=== PATIENT | male | born 1965 | race Asian ===

== ENCOUNTER 2021-03-09 09:06 | Emergency (ER) | payer MEDICAID, OTHER ==
[~2021-03-09] VITALS: Ht 170.2 cm; Wt 74.8 kg
[2021-03-09 09:33] LABS: Basophils # (auto) 0.1 10 ^3/uL (0-0.2); Basophils % (auto) 1.3 % (0.0-2.0); Eosinophils # (auto) 0.1 10 ^3/uL (0-0.8); Eosinophils % (auto) 2.1 % (0.0-7.0); Hematocrit 43.8 % (41.0-53.0); Hemoglobin 15.1 g/dL (13.5-17.5); Lymphocytes # (auto) 1.8 10 ^3/uL (0.4-5.4); Lymphocytes % (auto) 34.3 % (10.0-50.0); Mean Corpuscular Hemoglobin 31.1 pg (28.0-32.0); Mean Corpuscular Hgb Conc. 34.4 g/dL (32.0-36.0); Mean Corpuscular Volume 90.5 fL (80.0-100.0); Monocytes # (auto) 0.5 10 ^3/uL (0-1.3); Monocytes % (auto) 10.1 % (0.0-12.0); Neutrophils # (auto) 2.7 10 ^3/uL (1.6-8.6); Neutrophils % (auto) 52.2 % (37.0-80.0); Nucleated Red Blood Cells % 0.1 %; Red Blood Cells 4.84 10^6/uL (4.5-5.90); Red Cell Distribution Width 12.8 % (11.8-14.3); White Blood Cell 5.2 10^3/uL (4.4-10.8)
[2021-03-09 09:50] LABS: Albumin 3.4 g/dL (3.4-5.0); Calcium 8.6 mg/dL (8.5-10.1); Potassium 4.5 mmol/L (3.5-5.1)
[2021-03-09 09:50] LABS: Urine Bacteria NONE SEEN /hpf (None Seen); Urine Blood Negative /uL (Negative); Urine Specific Gravity 1.017 (1.001-1.035); Urine WBC 1 /hpf (0 - 3)
[2021-03-09 09:53] LABS: BUN/Creatinine Ratio 13.8
[2021-03-09 09:56] LABS: Bilirubin, Total 0.7 mg/dL (0.2-1.0); Total Protein 7.7 g/dL (6.4-8.2)
[2021-03-09] MEDS ORDERED: SODIUM CHLORIDE 0.9% 1,000 ML IV ONE (11:30)
[2021-03-09] MEDS ORDERED: METOCLOPRAMIDE HCL 5MG/ml INJ 2ml VIAL IV ONE (11:30)
[2021-03-09] MEDS ORDERED: KETOROLAC TROMETH 30 MG/ML 1ML VIAL IV ONE (11:30)
[2021-03-09 13:54] VITALS: BP 162/101
[2021-03-09] MEDS ORDERED: TAMSULOSIN HYDROCHLORIDE 0.4 MG CAP PO ONE (14:30)
== END 2021-03-09 14:38 | disposition home or self-care (01) ==
LOC: ER 09:06
DX: N20.1 Calculus of ureter (principal); K40.20 Bilateral inguinal hernia, without obstruction or gangrene, not specified as recurrent; K76.0 Fatty (change of) liver, not elsewhere classified; I10 Essential (primary) hypertension; Z87.442 Personal history of urinary calculi
CPT/HCPCS: 36415; 74176; 80053; 81001; 85025; 93005; 96361; 96374; 96375; 99285; J1885; J2765; J7030

== ENCOUNTER 2023-12-18 08:29 | Inpatient (IN) | payer MEDICAID ==
[~2023-12-18] VITALS: Ht 172.7 cm; Wt 95.6 kg
[2023-12-18 09:07] LABS: Basophils # (auto) 0 10 ^3/uL (0-0.2); Basophils % (auto) 0.4 % (0.0-2.0); Eosinophils # (auto) 0.2 10 ^3/uL (0-0.8); Eosinophils % (auto) 2.7 % (0.0-7.0); Hematocrit 44.5 % (41.0-53.0); Hemoglobin 15.7 g/dL (13.5-17.5); Lymphocytes # (auto) 1.4 10 ^3/uL (0.4-5.4); Lymphocytes % (auto) 17.8 % (10.0-50.0); Mean Corpuscular Hemoglobin 32.5 pg (28.0-32.0); Mean Corpuscular Hgb Conc. 35.4 g/dL (32.0-36.0); Monocytes # (auto) 0.4 10 ^3/uL (0-1.3); Monocytes % (auto) 5.2 % (0.0-12.0); Neutrophils # (auto) 5.9 10 ^3/uL (1.6-8.6); Neutrophils % (auto) 73.9 % (37.0-80.0); Nucleated Red Blood Cells % 0.1 %; Red Blood Cells 4.83 10^6/uL (4.5-5.90); Red Cell Distribution Width 13.2 % (11.8-14.3); White Blood Cell 7.9 10^3/uL (4.4-10.8)
[2023-12-18] MEDS: SODIUM CHLORIDE 0.9% 1,000 ML IV ONE ×2 (09:09→09:13)
[2023-12-18 09:14] VITALS: PULSE 82; RESP 19; O2SAT 95
[2023-12-18] MEDS: hydrALAZINE HCL 20 MG/ML VL IV ONE (09:14)
[2023-12-18 09:32] LABS: Alanine Aminotransferase 37 U/L (7-40); Albumin 4.6 g/dL (3.2-4.8); Alkaline Phosphatase 76 U/L (46-116); Anion Gap 5 (5-15); Aspartate Aminotransferase 23 U/L (13-40); BUN/Creatinine Ratio 12.1 (10.0-20.0); Bilirubin, Total 0.9 mg/dL (0.2-1.0); Blood Urea Nitrogen 12 mg/dL (9-23); Calcium 9.7 mg/dL (8.5-10.1); Carbon Dioxide 26 mmol/L (20-30); Chloride 110 mmol/L (98-107); Glucose 148 mg/dL (74-106); Potassium 4.7 mmol/L (3.5-5.1); Sodium 141 mmol/L (136-145)
[2023-12-18 09:44] LABS: Lipase 42 U/L (12-53)
[2023-12-18] MEDS: MORPHINE SULFATE 4 MG/ML SYR/VIAL IV ONE (09:44)
[2023-12-18] MEDS: ONDANSETRON HCL 4 MG/2 ML VIAL IV ONE (09:44)
[2023-12-18 10:37] LABS: Urine Bacteria None Seen /hpf (None Seen)
[2023-12-18 10:53] LABS: Urine Blood Negative /uL (Negative); Urine Clarity Clear (Clear); Urine Color Yellow (Yellow); Urine Mucus FEW (None Seen); Urine Protein, UAD TRACE (Negative); Urine Specific Gravity 1.023 (1.001-1.035); Urine Urobilinogen Normal (Negative); Urine WBC 1 /hpf (0 - 3)
[2023-12-18] MEDS: cloNIDine HCL 0.1 MG TAB PO ONE (12:02)
[2023-12-18] MEDS ORDERED: MORPHINE SULFATE 4 MG/ML SYR/VIAL IV PRN (12:30)
[2023-12-18] MEDS ORDERED: hydrALAZINE HCL 20 MG/ML VL IV PRN (12:30)
[2023-12-18] MEDS ORDERED: NITROGLYCERIN 0.4 MG SL TAB SL PRN (12:30)
[2023-12-18] MEDS ORDERED: MORPHINE SULFATE INJ 2 MG/ml SYRG IV PRN (12:30)
[2023-12-18] MEDS: LACTULOSE 20Gm/30ML SOLN PO ONE (13:49)
[2023-12-18] MEDS: ONDANSETRON HCL 4 MG/2 ML VIAL IV PRN (13:50)
[2023-12-18] MEDS: MORPHINE SULFATE INJ 2 MG/ml SYRG IV PRN (13:52)
[2023-12-18] MEDS: D5W/SOD CHL 0.45% 1,000 ML IV SCH (17:30)
[2023-12-18 18:44] VITALS: BP 154/96; PULSE 70; RESP 18; RESP 20; TEMP 97.8; O2SAT 98
[2023-12-18 20:00] VITALS: PULSE 63; PULSE 70; RESP 20; O2SAT 97
[2023-12-18 21:00] VITALS: BP 137/87; PULSE 63; RESP 22; TEMP 97.6; O2SAT 97
[2023-12-18] MEDS: LACTULOSE 20Gm/30ML SOLN PO SCH (22:00)
[2023-12-18] MEDS: cloNIDine HCL 0.1 MG TAB PO SCH (22:06)
[2023-12-18] MEDS: PANTOPRAZOLE 40 MG/10 ML VIAL INJ IV SCH (22:11)
[2023-12-19] VITALS (9 sets, daily range): BP systolic 121–138; BP diastolic 76–91; PULSE 61–75; RESP 16–22; TEMP 97.7–98.7; O2SAT 95–99
[2023-12-19] MEDS: ENOXAPARIN SOD 40 MG/0.4 ML SYRINGE SC SCH (09:22)
[2023-12-19] MEDS ORDERED: LACTULOSE 20Gm/30ML SOLN PO PRN (13:00)
[2023-12-20 01:00] VITALS: BP 123/75; PULSE 62; RESP 20; TEMP 97.7; O2SAT 95
[2023-12-20 05:00] VITALS: BP 127/84; PULSE 71; RESP 20; TEMP 98.1; O2SAT 97
[2023-12-20 07:21] LABS: Basophils # (auto) 0 10 ^3/uL (0-0.2); Basophils % (auto) 0.4 % (0.0-2.0); Eosinophils # (auto) 0.3 10 ^3/uL (0-0.8); Eosinophils % (auto) 4.2 % (0.0-7.0); Hematocrit 40.3 % (41.0-53.0); Lymphocytes # (auto) 1.2 10 ^3/uL (0.4-5.4); Lymphocytes % (auto) 19.4 % (10.0-50.0); Mean Corpuscular Hemoglobin 31.7 pg (28.0-32.0); Mean Corpuscular Hgb Conc. 34.7 g/dL (32.0-36.0); Mean Corpuscular Volume 91.4 fL (80.0-100.0); Monocytes # (auto) 0.5 10 ^3/uL (0-1.3); Monocytes % (auto) 8.8 % (0.0-12.0); Neutrophils # (auto) 4.2 10 ^3/uL (1.6-8.6); Neutrophils % (auto) 67.2 % (37.0-80.0); Nucleated Red Blood Cells % 0.1 %; Red Blood Cells 4.41 10^6/uL (4.5-5.90); White Blood Cell 6.2 10^3/uL (4.4-10.8)
[2023-12-20 07:56] LABS: Alanine Aminotransferase 26 U/L (7-40); Albumin 3.9 g/dL (3.2-4.8); Alkaline Phosphatase 67 U/L (46-116); Anion Gap 7 (5-15); Aspartate Aminotransferase 21 U/L (13-40); BUN/Creatinine Ratio 11.1 (10.0-20.0); Blood Urea Nitrogen 10 mg/dL (9-23); Calcium 9.2 mg/dL (8.5-10.1); Carbon Dioxide 24 mmol/L (20-30); Chloride 109 mmol/L (98-107); Cholesterol 168 mg/dL (< 200); Glucose 78 mg/dL (74-106); LDL Cholesterol 116 mg/dL (< 100); Potassium 4.1 mmol/L (3.5-5.1); Sodium 140 mmol/L (136-145); Triglycerides 159 mg/dL (< 150)
[2023-12-20 07:57] LABS: Bilirubin, Total 1.8 mg/dL (0.2-1.0); HDL Cholesterol 28 mg/dL (40-59); Total Protein 6.8 g/dL (5.7-8.2)
[2023-12-20 08:00] VITALS: PULSE 58
[2023-12-20 08:45] LABS: Lipase 36 U/L (12-53)
[2023-12-20] MEDS ORDERED: PANT40TA2 PO (12:28)
[2023-12-20] MEDS ORDERED: DICY10CA PO (12:28)
[2023-12-20 14:23] VITALS: BP 123/87; PULSE 73; RESP 17; TEMP 98.2; O2SAT 94
[2023-12-20 14:34] VITALS: BP 123/87; PULSE 73; RESP 17; TEMP 98.2; O2SAT 94
== END 2023-12-20 15:39 | disposition home or self-care (01) | DRG 249 ==
LOC: ER 08:29 → TELE 12:22 → TELE-WESTW 18:10
PROVIDERS: ADMIT Hospitalist; ATTEND Hospitalist
DX: E86.0 Dehydration (principal); K52.9 Noninfective gastroenteritis and colitis, unspecified; K76.0 Fatty (change of) liver, not elsewhere classified; K59.00 Constipation, unspecified; I10 Essential (primary) hypertension; Z87.442 Personal history of urinary calculi; Z82.49 Family history of ischemic heart disease and other diseases of the circulatory system
CPT/HCPCS: 36415; 74176; 80053; 80061; 81001; 83605; 83690; 85025; 96361; 96374; 96375; 96376; C9113; G0378; J2405